=== PATIENT | male | born 1955 | race Caucasian/White ===

== ENCOUNTER → 2024-05-15 10:11 | Outpatient (AMB) | payer MEDICARE, SELFPAY ==
--- NOTE | 2024-05-15 10:18 | AM.OFFWIN_ITS ---
Intake Vital Signs 05/15/24 10:22 Height 5 ft 8 in Weight 205 lb BMI 31.2 BP 148/80 H Blood Pressure Location Lt brachial Position Sitting Respiration 14 Pulse 74 Pulse Source Pulse Oximeter Temp 97.5 F Temp Source Oral Pulse Oximetry (%) 98 Oxygen Delivery Method Simple Mask Intake Visit Reasons: Respiratory complaints Intake Note: Patient complaining of feeling like he has fluid in his lungs, and coughing x 2 week Patient Tobacco Use Status: Never used Tobacco Allergies No Known Allergies Allergy (Verified 05/15/24 10:57) Medication List - Last Reconciled 05/15/24 by MARIA FERNANDA Regalado No Known Home Meds Do you need a note to return to daycare/school/sports/work: No HPI HPI Comments History of Present Illness Details The patient is a 68-year-old male presenting with a persistent cough and the sensation of having fluid in his lungs. The symptoms began approximately 2-3 weeks ago, following recovery from a mild cold. The sensation of fluid in the lungs has occurred two to three times before, with the last instance being one to two years ago. The patient denied any fever or chills and reported the presence of phlegm. He has previously been diagnosed with pneumonia when seen by Dr. Torres, which presented with similar symptoms of raspy, rough-feeling lungs. Treatment during the past instances included antibiotics which resulted in significant improvement within a few days. No medication has been effective for the current symptoms thus far. 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 Denies swelling in his lower ext, orthopnea. Social History - Family status: Caregiver to , invo lved in transporting her to appointments. - Former smoker: Patient does not curren tly smoke. - Transportation: Primarily responsible for driving, limiting availability for additional appointments. Physical Exam General: Awake, alert. No apparent distress Cardiovascular: Regular rate and rhythm Respiratory: Coarse and congested w/ insp/exp wheese throughout No edema BLE Results CXR ordered and pending Discussion Notes I discussed with the patient the possibility of bacterial pneumonia given his symptoms of a persistent cough and the sensation of fluid in the lungs. I recommended immediate treatment with antibiotics, an inhaler to help open airways, and a low-dose steroid to manage inflammation. The importance of a chest X-ray was emphasized for further evaluation, and I explained that the imaging could be done at our affiliated office. Due to logistical constraints, X-ray results will need to be obtained by the patient. The patient was advised to monitor symptoms closely and attend the scheduled follow-up with Dr. Torres. We also discussed starting the treatment immediately to alleviate symptoms. Patient Instructions - Begin antibiotics, inhaler, and steroi d as prescribed. - Obtain a chest X-ray at a convenient l ocation, and ensure the report is provided to our office for review. - Monitor symptoms and return to the i jordy if there is no improvement or if symptoms worsen. - Follow up with Dr. Torres as scheduled. Plan - Initiate treatment for suspected bacte rial pneumonia with antibiotics. - Prescribe an inhaler to assist with ai rway management and a low-dose steroid to control inflammation. - Recommend a chest X-ray to confirm the diagnosis and monitor lung status. - Advise the patient to bring the chest X-ray report to the clinic for further analysis. - Start treatment immediately to manage symptoms and potentially prevent worsening of the condition. Patient was informed and verbally consented to the use of an ambient scribe for clinic note documentation during this visit. Total time spent caring for the patient today was 30 minutes. This includes time spent before the visit reviewing the chart, time spent during the visit, and time spent after the visit on documentation, reviewing laboratory results, diagnostic imaging, medications, performing a medically necessary evaluation, counseling on diagnoses, care coordination, ordering appropriate tests, ordering appropriate medications, review of tests performed by other providers, reporting test results with the patient, communication with other healthcare providers. [facility] Social History Patient Tobacco Use Status: Never used Tobacco Physical Exam Vital Signs: Last Vital Signs Temp 97.5 F 05/15/24 10:22 Pulse 74 05/15/24 10:22 Resp 14 05/15/24 10:22 BP 148/80 H 05/15/24 10:22 Pulse Ox 98 05/15/24 10:22 Oxygen Delivery Method Simple Mask 05/15/24 10:22 BMI result Body Mass Index 31.2 Assessment & Plan Assessment & Plan (1) Walking pneumonia: Code(s): J18.9 - Pneumonia, unspecified organism Plan . Orders: Orders XR chest 2V Today J18.9 - Pneumonia, unspecified organism Medications: New albuterol sulfate 90 mcg/actuation 2 puffs inhalation Q4-6H 30 days PRN 8.5 grams 0RF shortness of breath or wheezing azithromycin For 250 mg dose pack: take 500 mg today (day 1), then 250 mg for 4 days (days 2-5) PO 5 days 6 tabs 0RF prednisone 20 mg PO DAILY 5 tabs 0RF Coding Level of Care Code Est Pt Level 4 (51540) Diagnoses Walking pneumonia J18.9
[2024-05-15 10:22] VITALS: BP 148/80; PULSE 74; RESP 14; TEMP 36.4; O2SAT 98; BMI 31.2
== END ==
PROVIDERS: Visit Provider Nurse Practitioner Family
DX: J18.9 Pneumonia, unspecified organism (principal)

== ENCOUNTER 2024-05-16 11:14 | Outpatient (REF) | payer MEDICARE, SELFPAY ==
--- NOTE | ~2024-05-16 | XR_ITS ---
EXAMINATION: XR CHEST CLINICAL INFORMATION: J18.9 - Pneumonia, unspecified organism COMPARISON: None available. TECHNIQUE: 2 views of the chest were obtained. FINDINGS: Lungs are expanded and clear acute process. The heart size and pulmonary vascularity is normal. There is mild spondylosis dorsal spine. No aggressive lytic or sclerotic process seen. XR/XR chest 2V IMPRESSION: Unremarkable chest exam Electronically signed by: Drew Da Silva MD 05/16/2024 12:07 PM EST
== END 2024-05-16 11:15 | disposition home or self-care (01) ==
LOC: HO.HMGCX 11:14
PROVIDERS: PCP Internal Medicine; Visit Provider Nurse Practitioner Family
DX: J18.9 Pneumonia, unspecified organism (principal)
CPT/HCPCS: 71046

== ENCOUNTER → 2024-05-16 11:33 | Outpatient (BNV) | payer MEDICARE, SELFPAY | PROVIDERS: PCP Internal Medicine; Visit Provider Radiology Diagnostic Radiology | DX: J18.9 Pneumonia, unspecified organism (principal) | CPT/HCPCS: 71046 ==

== ENCOUNTER 2024-06-02 08:35 | Outpatient (AMB) | payer MEDICARE, SELFPAY ==
--- NOTE | 2024-06-02 09:05 | A.OFFPC_ITS ---
Vital Signs 06/02/24 09:10 Height 5 ft 8 in Weight 203 lb 6 oz BMI 30.9 BP 136/86 Blood Pressure Location Rt brachial Position Sitting Respiration 16 Pulse 68 Pulse Source Pulse Oximeter Pulse Oximetry (%) 99 Oxygen Delivery Method Room Air Intake Visit Reasons: [place] Intake Note: New patient visit Allergies No Known Allergies Allergy (Verified 06/02/24 09:06) Tobacco use date assessed: 06/02/24 Fall risk assessment: 1 Fall in past year Last assessed Fall Risk: 06/02/24 Dental Screening Dental Screen Date: 06/02/24 Did you have a dental visit in the last 12 months?: Yes Did you have a dental problem in the last 6 months where you did not have access to dental care?: No Was dental information given to patient?: Patient has dentist HPI HPI Comments History of Present Illness Details The patient is a 68 year old male with with a past medical history of hyperlipidemia, tinnitus, hearling loss [facility]: Tinnitus is stable Hyperlipidemia: Monitoring. Not on medications. In ER for left wrist injury in March. A step stool broke. He has to get stitches. Then had to go to the ER and threw his back out . It is feeling better ROS CONSTITUTIONAL: Denies weight loss, fever and chills. HEENT: Denies changes in vision and hearing. RESPIRATORY: Denies SOB and cough. CV: Denies palpitations and CP GI: Denies abdominal pain, nausea, vomiting and diarrhea. : Denies dysuria and urinary frequency. MSK: Denies new myalgia and joint pain. SKIN: Denies rash and pruritus. NEUROLOGICAL: Denies headache PSYCHIATRIC: Denies recent changes in mood. PHYSICAL EXAM: GENERAL: Alert and oriented x 3. NAD EYES: EOMI. Anicteric. HENT: Moist mucous membranes. No scleral icterus. No cervical lymphadenopathy. LUNGS: Clear to auscultation bilaterally. CARDIOVASCULAR: Regular rate and rhythm. No murmur. No JVD. ABDOMEN: Soft, non-tender +bs EXTREMITIES: No edema. Non-tender. SKIN: No rashes or lesions. Warm. NEUROLOGIC: No focal neurological deficits. CN II-XII grossly intact PSYCHIATRIC: Cooperative. Appropriate mood and affect [facility] Family History (Updated 06/02/24 @ 09:10 by Crystal Melloni, PRESSFITTER) Mother Cancer of colon Father Skin cancer Social History Housing: House Patient Tobacco Use Status: Never used Tobacco e-Cigarette/Vaping Use: Never Used Second Hand Smoke Exposure: No service: No Current occupational status: retired Cognitive needs: No Hearing needs: Yes (hearing loss) Vision needs: Yes (glasses) Questionnaire PHQ-9 Over the last 2 weeks, how often have you been bothered by any of the following problems? 1. Little interest or pleasure in doing things: not at all 2. Feeling down, depressed, or hopeless: not at all 3. Trouble falling or staying asleep, or sleeping too much: not at all 4. Feeling tired or having little energy: not at all 5. Poor appetite or overeating: not at all 6. Feeling bad about yourself - or that you are a failure or have let yourself or your family down: not at all 7. Trouble concentrating on things, such as reading the newspaper or watching television: not at all 8. Moving or speaking so slowly that other people could have noticed. Or the opposite - being so fidgety or restless that you have been moving around a lot more than usual: not at all 9. Thoughts that you would be better off or of hurting yourself in some way: not at all Total score: 0 Depression Screening Interpretation: Negative Depression Screening Done: Yes 16512 - PHQ-9 Billing: Yes Source: Developed by Drs. Anibal Ramirez, Simona Dai, Dilan Chen and colleagues, with an educational yusef from [employer]. Thrive Questionnaire Date Thrive assessed: 05/26/24 I am a: Patient What is your living situation today?: I have a steady place to live Within the past 12 months, did the food you bought not last and you didn't have the money to get more?: Never true Within the past 12 months, did you worry whether your food would run out before you got money to buy more?: Never true Do you have trouble paying for medicines?: No Do you have trouble getting transportation to medical appointments?: No Do you have trouble paying your heating and electricity bill?: No Do you have trouble taking care of your child, family member or friend?: No Do you have trouble with day-to-day activities such as bathing, preparing meals, shopping, managing finances, etc.?: No Are you currently unemployed and looking for a job?: No Are you interested in more education?: No Please select the resources that you would like help with: None Currently or been in a relationship where the following occur: No concerns reported THRIVE Score: 0 AUDIT C Alcohol Use Questionnaire (AUDIT-C) 1. How often do you have a drink containing alcohol?: 2-3 times a week 2. How many drinks containing alcohol do you have on a typical day when you are drinking?: 3 or 4 3. How often do you have six or more drinks on one occasion?: Never Total Score: 4 GENI-7 AMB Questionnaire GENI-7 Feeling nervous, anxious, or on edge: 0 = Not at all Not being able to stop or control worryin = Not at all Worrying too much about different things: 0 = Not at all Trouble relaxin = Not at all Being so restless that it is hard to sit still: 0 = Not at all Becoming easily annoyed or irritable: 0 = Not at all Feeling afraid as if something awful might happen: 0 = Not at all Total GENI-7 score (0-4 normal; 5-9 mild; 10-14 moderate; 15-21 severe): 0 Source: Developed by Drs. Anibal Ramirez, Simona Dai, Dilan Chen and colleagues, with an educational yusef from [employer]. Physical exam (Primary Care) Vital Signs: Last Vital Signs Pulse 68 06/02/24 09:10 Resp 16 06/02/24 09:10 BP 136/86 06/02/24 09:10 Pulse Ox 99 06/02/24 09:10 Oxygen Delivery Method Room Air 06/02/24 09:10 BMI result Body Mass Index 30.9 Tobacco/Smoking Status: Tobacco use Status Tobacco use date assessed 06/02/24 06/02/24 09:15 Patient Tobacco Use Status Never used Tobacco 06/02/24 09:15 e-Cigarette/Vaping Use Never Used 06/02/24 09:15 PHQ-9: PHQ-9 Score PHQ-9: Total score 0 06/04/24 12:19 Depression Screening Interpretation: Negative Thrive Assessment: Date of Thrive Assessment Date Thrive assessed 05/26/24 06/02/24 09:15 Currently or been in a relationship where the following occur: No concerns reported Coding Level of Care Code New Pt Level 4 (15298) Diagnoses Establishing care with new doctor, encounter for Z76.89 Mixed hyperlipidemia E78.2 Hyperlipidemia type: mixed hyperlipidemia Additional Codes PHQ-9 - 95918 - PHQ-9 Billing: Yes ([id number]) Assessment & Plan Assessment & Plan (1) Establishing care with new doctor, encounter for: Code(s): Z76.89 - Persons encountering health services in other specified circumstances Category: Medical Plan: 68 year old to reestablish care. past medical, surgical, social history reviewed. chart updated. (2) Hyperlipidemia: Code(s): E78.5 - Hyperlipidemia, unspecified Category: Medical Qualifiers: Hyperlipidemia type: mixed hyperlipidemia Qualified Code(s): E78.2 - Mixed hyperlipidemia Plan: monitor labs which are ordered Orders: Orders Complete Blood Count Auto Diff 06/02/24 E78.5 - Hyperlipidemia, unspecified, Z13.0 - Encounter for screening for diseases of the blood and blood-forming orga ns and certain disorders involving the immune mechanism, Z13.228 - Encounter for screening for other metabolic disorders Comprehensive Met. Panel 06/02/24 E78.5 - Hyperlipidemia, unspecified, Z13.0 - Encounter for screening for diseases of the blood and blood-forming organs and certain disorders involving the immune mechanism, Z13.228 - Encounter for screening for other metabolic disorders Lipid Panel 06/02/24 E78.5 - Hyperlipidemia, unspecified, Z13.0 - Encounter for screening for diseases of the blood and blood-forming organs and certain disorders involving the immune mechanism, Z13.228 - Encounter for screening for other metabolic disorders Prostate Specific Antigen 06/02/24 E78.5 - Hyperlipidemia, unspecified, Z13.0 - Encounter for screening for diseases of the blood and blood-forming organs and certain disorders involving the immune mechanism, Z13.228 - Encounter for screening for other metabolic disorders Referrals Cologuard Test E78.5 - Hyperlipidemia, unspecified, Z12.11 - Encounter for screening for malignant neoplasm of colon, Z12.12 - Encounter for screening for malignant neoplasm of rectum, Z13.0 - Encounter for screening for diseases of the blood and blood-forming organs and certain disorders involving the immune mechanism, Z13.228 - Encounter for screening for other metabolic disorders
[2024-06-02 09:10] VITALS: BP 136/86; PULSE 68; RESP 16; O2SAT 99; BMI 30.9
== END 2024-06-02 09:42 | disposition home or self-care (01) ==
PROVIDERS: PCP Internal Medicine; Visit Provider Internal Medicine
DX: Z76.89 Persons encountering health services in other specified circumstances (principal); E78.2 Mixed hyperlipidemia

== ENCOUNTER 2024-06-02 09:54 | Outpatient (REF) | payer MEDICARE, SELFPAY ==
[2024-06-02 11:00] LABS: MANUAL DIFF FLAG NO
[2024-06-02 11:13] LABS: Basophils Percent Auto 0.9 % (0-2); Eosinophils Percent Auto 1.1 % (0-4); Hematocrit 42.4 % (42.0-52.0); Hemoglobin 14.9 g/dl (14.0-18.0); Lymphocytes Absolute Auto 1.4 X10*3/uL (1.2-4.9); Lymphocytes Percent Auto 38.9 % (20-40); Mean Corpuscular HGB Conc 35.1 g/dl (31.0-36.0); Mean Corpuscular Hemoglobin 31.5 pg (27.0-33.0); Mean Corpuscular Volume 89.6 fL (80.0-98.0); Mean Platelet Volume 10.5 fL (9.4-12.4); Monocytes Absolute Auto 0.3 X10*3/uL (0.1-1.2); Monocytes Percent Auto 9.1 % (2-11); Neutrophils Absolute Auto 1.8 x10*3/uL (2.0-8.3); Platelet Count 194 X10*3/uL (160-400); Red Blood Count 4.73 X10*6/uL (4.60-5.80); Red Cell Distribution Width 12.9 % (11.0-16.0); White Blood Count 3.5 X10*3/uL (4.8-10.8)
[2024-06-02 11:47] LABS: Prostate Specific Antigen 13.24 ng/mL (<0.05-4.0)
[2024-06-02 11:54] LABS: Alanine Aminotransferase 18 U/L (0-40); Albumin Level 4.3 g/dL (3.5-5.0); Alkaline Phosphatase 105 U/L (39-117); Anion Gap 12 (12-20); Aspartate Amino Transferase 23 U/L (5-37); Bilirubin Total 0.9 mg/dL (0.0-1.0); Blood Urea Nitrogen 10 mg/dL (9-16); Calcium 9.5 mg/dL (8.4-10.2); Carbon Dioxide 23 mmol/L (22-29); Chloride 105 mmol/L (96-108); Cholesterol 223 mg/dL (<200); Estimated Glomerular Filt Rate > 60; Glucose Random 98 mg/dL (60-115); HDL Cholesterol 59 mg/dL (>40); LDL Cholesterol Calculated 128 mg/dL (<100); Potassium 4.1 mmol/L (3.3-5.1); Sodium 136 mmol/L (135-145); Total Protein 7.8 g/dL (6.5-8.0); Triglycerides 184 mg/dL (<150)
== END 2024-06-02 09:55 | disposition home or self-care (01) ==
LOC: HO.WFDLDS 09:54
PROVIDERS: Visit Provider Internal Medicine
DX: Z12.5 Encounter for screening for malignant neoplasm of prostate (principal); E78.5 Hyperlipidemia, unspecified; Z76.89 Persons encountering health services in other specified circumstances
CPT/HCPCS: 36415; 80053; 80061; 84153; 85025; 96127; 99202